=== PATIENT | female | born 1965 | race African-American/Black ===

== ENCOUNTER 2017-01-12 11:09 | Emergency (ER) | payer MEDICARE, OTHER ==
[~2017-01-12] VITALS: Ht 170.2 cm; Wt 99.8 kg
[~2017-01-12 11:09] MED LIST: ATENOLOL100 MG ORAL; CYCLOBENZAPRINE10 MG ORAL; HYDROCHLOROTHIA25 MG ORAL; IBUPROFEN600 MG ORAL; NORCO 10-325 T1 EACH ORAL; PROMETHAZINE-D118 ML ORAL; ROBAXIN-750750 MG PO; TRAMADOL HCL50 MG ORAL
[2017-01-12 11:21] VITALS: BP 115/79
[2017-01-12] MEDS ORDERED: ACYCLOVIR800 MG ORAL (12:54)
--- NOTE | 2017-01-15 14:09 | Emergency Room Report ---
History of Present Illness General Chief Complaint: Skin Rash/Abscess Present Illness HPI Patient is a 51-year-old female presented after having acute onset of genital rash. Patient noticed area to the general area had become increasingly painful as well as swollen. She denied any fever. She reports being sexually active. She denied any vaginal discharge or pain. She denied prior similar symptoms. Allergies: Coded Allergies: IBUPROFEN (Verified Adverse Reaction, Intermediate, 09/16/14) Patient History Past Medical History: see triage record Reviewed Nursing Documentation: PMH: Agreed, PSxH: Agreed Nursing Documentation-PMH Hx Hypertension: Yes Review of Systems All Other Systems: negative except mentioned in HPI Physical Exam Vital Signs Date Time Temp Pulse Resp B/P (MAP) Pulse Ox O2 Delivery O2 Flow Rate FiO2 01/12/17 11:18 98.1 86 20 115/79 98 Room Air General Appearance: well appearing, no apparent distress, alert, GCS 15, non- toxic Head: normocephalic, atraumatic ENT: hearing grossly normal, normal voice Neck: full range of motion, supple Respiratory: no respiratory distress, speaking full sentences Genitourinary: other Musculoskeletal: no calf tenderness Neurologic: normal inspection, alert, oriented x3, responsive, normal gait Psychiatric: mood/affect normal Skin: other - vesicular rash to right side of vulva Medical Decision Making Diagnostic Impression: Primary Impression: Rash of genital area ER Course Patient presented for skin rash. Differential diagnosis included but not limited to folliculitis, herpes, abscess, Fourniere's gangrene among others. Patient's benign exam and does not appear to require any further imaging or laboratory testing at this time. The patient appears to have rash consistent with herpes. The patient be started on acyclovir. She is advised followup with outpatient STI testing.The patient is advised to follow up with primary care doctor in 1-2 days. Patient is advised to return if any worsening condition or if any changes in status that are concerning. Last Vital Signs Date Time Temp Pulse Resp B/P (MAP) Pulse Ox O2 Delivery O2 Flow Rate FiO2 01/12/17 13:05 85 16 102/77 99 Room Air 01/12/17 11:18 98.1 Status: improved Disposition: HOME, SELF-CARE Condition: Stable Scripts Acyclovir* (ZOVIRAX*) 800 Mg Tablet 800 MG ORAL FIVE TIMES A DAY, #35 TAB Prov: Henrique Zuñiga 01/12/17 Patient Instructions: Henrique Clemens Jan 15, 2017 14:09
== END 2017-01-12 13:09 | disposition home or self-care (01) ==
LOC: MERGE 12:25 → EMR 12:25
DX: R21 Rash and other nonspecific skin eruption (principal); I10 Essential (primary) hypertension; Z88.6 Allergy status to analgesic agent
CPT/HCPCS: 99283

== ENCOUNTER 2017-05-08 13:05 | Emergency (ER) | payer MEDICARE, OTHER ==
[~2017-05-08] VITALS: Ht 170.2 cm; Wt 97.5 kg
[~2017-05-08 13:05] MED LIST changes: +ACYCLOVIR800 MG ORAL
[2017-05-08 13:13] VITALS: BP 137/81
--- NOTE | 2017-05-08 13:31 | Emergency Room Report ---
History of Present Illness General Chief Complaint: Upper Respiratory Illness Source: Patient Present Illness HPI 51 yo female patient presents to ER complaining of cough x2 weeks. Patient reports yellow green sputum; denies blood in sputum. Denies fever, chest pain, SOB. Patient also complains of nasal congestion x2 days. Patient denies epistaxis. Patient denies G[place]STEIN, vision changes, abdominal pain, nausea, vomiting, diarrhea. Reports hx of sick contacts. Denies hx of asthma. Reports use of OTC cough medications with mild relief of symptoms. Allergies: Coded Allergies: IBUPROFEN (Verified Adverse Reaction, Intermediate, 03/19/17) Patient History Past Medical History: see triage record Last Menstrual Period: 1991 Reviewed Nursing Documentation: PMH: Agreed, PSxH: Agreed Nursing Documentation-PMH Past Medical History: No History, Except For Hx Hypertension: Yes Review of Systems All Other Systems: negative except mentioned in HPI Physical Exam Vital Signs Date Time Temp Pulse Resp B/P (MAP) Pulse Ox O2 Delivery O2 Flow Rate FiO2 05/08/17 13:13 98.6 97 16 137/81 97 Room Air 98.6 Sp02 EP Interpretation: reviewed, normal General Appearance: well appearing, no apparent distress, alert, GCS 15, non- toxic Head: normocephalic, atraumatic Eyes: bilateral eye normal inspection, bilateral eye PERRL ENT: hearing grossly normal, normal pharynx, normal voice, TMs + canals normal , uvula midline, moist mucus membranes, nasal congestion Neck: normal inspection, full range of motion, no bony tend Respiratory: normal inspection, lungs clear, normal breath sounds, no rhonchi, no respiratory distress, no accessory muscle use, no wheezing, speaking full sentences Cardiovascular #1: regular rate, rhythm Gastrointestinal: normal bowel sounds, non tender, soft, no mass, no organomegaly, non-distended, no guarding, no rebound Musculoskeletal: back normal, digits/nails normal, gait/station normal, normal range of motion, no calf tenderness Neurologic: alert, oriented x3, responsive, motor strength/tone normal, normal gait Psychiatric: mood/affect normal Skin: no rash Lymphatic: no adenopathy Medical Decision Making PA Attestation Dr. Maldonado is my supervising Physician whom patient management has been discussed with. Diagnostic Impression: Primary Impression: Cough Additional Impression: Nasal congestion ER Course Pt presents to ED c/o cough and congestion. DDX considered but are not limited to influenza, viral URI, strep throat, rhinitis, sinusitis, otitis media. VITAL SIGNS are WNL, patient is afebrile. Lungs clear to auscultation, nasal congestion. ORDERS: none required at this time, diagnosis is clinical ED INTERVENTIONS: none required at this time. DISCHARGE: At this time pt is stable for d/c to home. Patient is resting comfortably, in no acute distress, nontoxic appearing. -Rx given for Sudafed for congestion sx. -Rx given for Promethazine syrup for cough sx. Patient to take medications as instructed Will provide with patient care instructions and any necessary prescriptions. Care plan and follow-up instructions provided. Patient instructed to follow-up with primary care provider in 3 - 5 days. Patient questions asked and answered. Patient reports understanding and agreement to treatment plan. ER precautions given. Patient instructed to return to ER immediately for any new or worsening of symptoms including but not limited to increasing SOB, persistent fever. Last Vital Signs Date Time Temp Pulse Resp B/P (MAP) Pulse Ox O2 Delivery O2 Flow Rate FiO2 05/08/17 13:13 98.6 97 16 137/81 97 Room Air 98.6 Disposition: HOME, SELF-CARE Condition: Stable Scripts Pseudoephedrine Hcl* (SUDAFED*) 30 Mg Tablet 30 MG PO Q6H for 5 Days, #21 TAB Prov: Emmett Calvillo 05/08/17 Codeine/Promethazine Hcl* (PROMETHAZINE-CODEINE SYRUP*) 118 Ml Syrup 5 ML ORAL Q6H Y for For Cough for 7 Days, #118 ML 0 Refills Prov: Emmett Calvillo 05/08/17 Patient Instructions: Cough, Adult, [id number] Additional Instructions: Followup with primary care provider in 3 -5 days. Take medications as directed. Patient questions asked and answered. ER precautions given, patient instructed to return to ER immediately for any new or worsening of symptoms including but not limited to chest pain, SOB, fever , intractable vomiting. Emmett Calvillo May 08, 2017 13:31
[2017-05-08] MEDS ORDERED: PROMETHAZINE-C118 M1 ORAL (13:32)
[2017-05-08] MEDS ORDERED: PSEUDOEPHEDRINE30 MG PO (13:32)
[2017-05-08 13:41] VITALS: BP 128/90
== END 2017-05-08 13:30 | disposition home or self-care (01) ==
LOC: EMR 13:30
DX: R05 Cough (principal); R09.81 Nasal congestion; I10 Essential (primary) hypertension; Z88.6 Allergy status to analgesic agent
CPT/HCPCS: 99283